=== PATIENT | female | born 1985 | race Caucasian/White ===

== ENCOUNTER 2017-06-10 00:23 | Emergency (ER) | payer OTHER ==
[~2017-06-10] VITALS: Ht 157.5 cm; Wt 54.4 kg
--- NOTE | 2017-06-10 00:26 | ED PSYCHIATRIC COMPLAINT ---
History of Present Illness General Chief Complaint: Psychiatric Related Complaint Stated Complaint: BIBA DEPRESSION Source: patient, EMS Exam Limitations: intoxication Vital Signs & Intake/Output Vital Signs & Intake/Output Vital Signs Date Time Temp Pulse Resp B/P B/P Pulse O2 O2 Flow FiO2 Mean Ox Delivery Rate 06/10 1048 98.9 75 18 115/68 97 Room Air 06/10 0855 98.1 70 18 110/60 96 Room Air 06/10 0714 99.1 56 16 86/52 96 Room Air 06/10 0026 96.5 86 22 120/60 96 Room Air Allergies Coded Allergies: Penicillins (Mild, RASH 06/10/17) amoxicillin (Mild, RASH 06/10/17) Triage Nurses Notes Reviewed? yes Onset: Afternoon Duration: day(s): (FEW) Timing: recent history Severity: moderate, severe Associated Symptoms: DEPRESSED, FEELING DOWN HPI: This is a 32-year-old female with reported history of bipolar disorder on Celexa and Klonopin who presents via EMS from home with chief complaint of feeling very down and depressed. She denies any suicidal ideation. She says that her boyfriend became concerned about her and called EMS. HEENT she admits to 2 glasses of wine prior to arrival. She denies any drug use. She states that she is not any bipolar medications that she can likely magnetic field. Positive family history. No SI or HI. Denies any hallucinations or delusions. She states she's been trying to obtain custody back of her son from her mother and is been going to provide Court which is made her very upset. She has not seen or spoken him in over one year. He used to be with his father and father 1 year ago. ([place] ARNOLD,Angella) Past History Medical History Any Pertinent Medical History? see below for history Psychiatric: anxiety, bipolar disease Surgical History Surgical History: non-contributory Psychosocial History ETOH Use: occasional use Illicit Drug Use: denies illicit drug use Family History Comment: MOTHER - DEPRESSION, ANXIETY Hx Contributory? Yes ([place] ARNOLD,Angella) Review of Systems Review of Systems Constitutional: Denies: chills, fever. EENTM: Reports: no symptoms. Respiratory: Denies: hemoptysis, short of breath. Cardiovascular: Denies: chest pain. GI: Denies: abdominal pain. Genitourinary: Reports: no symptoms. Musculoskeletal: Reports: no symptoms. Skin: Reports: no symptoms. Neurological/Psychological: Reports: anxiety, dementia, emotional problems. Hematologic/Endocrine: Reports: no symptoms. Immunologic/Allergic: Reports: no symptoms. All Other Systems: Reviewed and Negative (Angella Guthrie MD) Physical Exam Physical Exam General Appearance: well developed/nourished, alert, awake, anxious, mild distress Head: atraumatic Eyes: Bilateral: PERRL, EOMI. Ears, Nose, Throat: normal pharynx, normal ENT inspection, hearing grossly normal Neck: normal inspection, supple Respiratory: normal breath sounds Cardiovascular: regular rate/rhythm Gastrointestinal: soft, non-tender Extremities: normal range of motion Neurological/Psychiatric: no motor/sensory deficits, agitated, alert, calm Appearance/Memory/Insight: disheveled, impaired insight Behavoir/Eye Contact/Speech: uncooperative, normal speech, good eye contact Thoughts/Hallucinations: no apparent hallucination Skin: intact, normal color, warm/dry SAD PERSONS Done? patient not suicidal (Angella Guthrie MD) Progress Differential Diagnosis: BIPOLAR, DEPRESSION, ANXIETY, ALCOHOL INTOXICATION Plan of Care: Orders Procedure Date/time Status Regular Diet 06/10 B Active URINE DRUGS OF ABUSE 06/10 32 Complete URINE 06/10 32 Complete ETHANOL 06/10 32 Complete COMPREHENSIVE METABOLIC PANEL 06/10 32 Complete CBC WITHOUT DIFFERENTIAL 06/10 32 Complete ED CRISIS PSYCH CONSULT 06/10 32 Active Laboratory Tests 06/10/17 0046: Serum Alcohol 154.0 06/10/17 0046: Anion Gap 13, Estimated GFR > 60, BUN/Creatinine Ratio 8.0, Glucose 100 H, Calcium 9.2, Total Bilirubin 0.1 L, AST 18, ALT 26, Alkaline Phosphatase 79, Total Protein 6.7, Albumin 4.3, Globulin 2.4, Albumin/Globulin Ratio 1.8, CBC w Diff NO MAN DIFF REQ, RBC 4.02 L, MCV 94.2, MCH 32.1 H, MCHC 34.0, RDW 13.2, MPV 8.8, Gran % 49.4, Lymphocytes % 36.5, Monocytes % 9.0, Eosinophils % 3.3, Basophils % 1.8, Absolute Granulocytes 3.7, Absolute Lymphocytes 2.8, Absolute Monocytes 0.7 H, Absolute Eosinophils 0.2, Absolute Basophils 0.1, Urine Opiates Screen < 100.00, Methadone Screen 51, Barbiturate Screen < 60, Ur Phencyclidine Scrn < 6.00, Amphetamines Screen 242, U Benzodiazepines Scrn < 85, Urine Cocaine Screen < 50, Urine Cannabis Screen 5.20, Urine Test NEGATIVE Hand-Off Endorsed To: Varghese Edwards MD Endorsed Time: 0700 Pending: consult (CRISIS) (Angella Guthrie MD) Comments: Cleared by psychiatry for discharge. (Varghese Edwards MD) Departure Departure Condition: Stable Clinical Impression Primary Impression: Depression Secondary Impressions: Alcohol intoxication (Angella Guthrie MD) Departure Time of Disposition: 1100 Disposition: HOME OR SELF CARE Additional Instructions: Follow up with the recommendations of the flow worker Departure Forms: General Discharge Information (Varghese Edwards MD)
[2017-06-10 01:00] LABS: ABSOLUTE BASOPHIL COUNT 0.1 /CUMM (0.0-0.2); ABSOLUTE EOSINOPHIL COUNT 0.2 /CUMM (0.0-0.7); ABSOLUTE GRANULOCYTE CT 3.7 /CUMM (1.4-6.5); ABSOLUTE LYMPH COUNT 2.8 /CUMM (1.2-3.4); ABSOLUTE MONOCYTE COUNT 0.7 /CUMM (0.10-0.60); BASOPHIL % 1.8 % (0.0-2.0); EOSINOPHIL % 3.3 % (0-5); GRANULOCYTE % 49.4 % (42.2-75.2); HEMATOCRIT 37.8 % (37-47); MEAN CORPUSCULAR HGB 32.1 PG (27.0-31.0); MEAN CORPUSCULAR VOLUME 94.2 FL (81.0-99.0); MEAN PLATELET VOLUME 8.8 FL (7.4-10.4); PLATELET COUNT 321 /CUMM (130-400); RBC DISTRIBUTION WIDTH 13.2 % (11.5-14.5); RED BLOOD CELL CT 4.02 /CUMM (4.20-5.40); WHITE BLOOD CELL COUNT 7.6 /CUMM (4.8-10.8)
[2017-06-10 10:48] VITALS: BP 115/68
--- NOTE | 2017-06-10 11:24 | ED PSYCH CRISIS CONSULTATION ---
Crisis Consult Basic Assessment Date of Consult: 06/10/17 Responsible Person/Accompanied By: self Insurance Authorization: Insurance #1: Insurance name: SHOSHANA FINLEY Phone number: Policy number: [id number] Group number: Authorization number: ED Provider: Patient's ED Provider: Varghese Edwards MD Primary Care Physician: Patient's PCP: Patient Has No Primary Care Dr PCP's Phone Number: Current Psychiatrist: none Chief Complaint: Psychiatric Related Complaint Patient's Quote: "I had to much to drink." Present Illness: Pt is a 32yo female who was sent to the ED by her boyfriend Harvey Barajas . Pt is not on a PEER. Pt explains that her boyfriend sent her to the ED because she was feeling overwhelmed and has a panic attack. she further explains that he was at [facility] previously and found it helpful, so her sent her to [facility] for support. She denies and current or hx of SI/HI/SH and psychosis. she admits to drinking 3 glasses of wine yesterday (BAL 154 at 00:46). She reports that she is a "social drinker on weekends" and does not see her drinking as a problem. [facility] She does report that she was in previous treatment in [facility] 2 year ago. She denies that she is in any current treatment, but is currently taking celexa prescribed by her Primary Care Doctor Dr. Dunbar. She informs that he just raised the celexa from 10mg to 20 over this past week. She reports that she is going for an intake at [facility] in 2 weeks. "I was just lacking on sleep and had too much to drink. I feel much better now that I go some rest." She explains that she has been feeling overwhelmed as she and her boyfriend are looking for a new place to live. Also, she has been in a custody vo with he mother over her 11yo child. This has been overwhelming for her. 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 she is also currently going to nursing school. She reports that she ans her boyfriend live together and her is supportive. She declines any referrals and says she wishes to go home. She denies that ther e are any guns in the home. Crisis spoke with pt's boyfriend Harvey Barajas who reflects the same as what client explained. He expresses that he would like to come pick her up and bring her home. Case reviewed with Dr. Glover of Psychiatry and she approved discharge. Patient's Address: [address] [place] [address] Other Phone Number: Who Do You Live With? Significant Other Family/Informants Interviewed: boyfriend Allergies - Coded Allergies: Penicillins (Mild, RASH 06/10/17) amoxicillin (Mild, RASH 06/10/17) Laboratory Results: Laboratory Tests 06/10/17 0046: Serum Alcohol 154.0 06/10/17 0046: Anion Gap 13, Estimated GFR > 60, BUN/Creatinine Ratio 8.0, Glucose 100 H, Calcium 9.2, Total Bilirubin 0.1 L, AST 18, ALT 26, Alkaline Phosphatase 79, Total Protein 6.7, Albumin 4.3, Globulin 2.4, Albumin/Globulin Ratio 1.8, CBC w Diff NO MAN DIFF REQ, RBC 4.02 L, MCV 94.2, MCH 32.1 H, MCHC 34.0, RDW 13.2, MPV 8.8, Gran % 49.4, Lymphocytes % 36.5, Monocytes % 9.0, Eosinophils % 3.3, Basophils % 1.8, Absolute Granulocytes 3.7, Absolute Lymphocytes 2.8, Absolute Monocytes 0.7 H, Absolute Eosinophils 0.2, Absolute Basophils 0.1, Urine Opiates Screen < 100.00, Methadone Screen 51, Barbiturate Screen < 60, Ur Phencyclidine Scrn < 6.00, Amphetamines Screen 242, U Benzodiazepines Scrn < 85, Urine Cocaine Screen < 50, Urine Cannabis Screen 5.20, Urine Test NEGATIVE Past History Past Medical History Neurological: NONE EENT: NONE Cardiovascular: hypertension Respiratory: NONE Gastrointestinal: NONE Hepatic: NONE Renal: NONE Musculoskeletal: NONE Psychiatric: anxiety, bipolar disease Endocrine: NONE Past Surgical History Surgical History: non-contributory Psychosocial History Strengths/Capabilities: supportive boyfriend, in school, starting new job Physical Limitations (Interventions): none reported Psychiatric Treatment History Psych Treatment Psychiatric Treatment Yes Inpatient Treatment No Outpatient Treatment Yes Location of Treatment [facility] Reason for Treatment depression Dates of Treatment 2 years ago Response to Treatment unknown Diagnosis by History: depression Substance Use/Abuse History Drug Use/Abuse Substances Used/Abused Yes Substance Used/Abused Alcohol First Use unknown Last Used last night How much used/taken 3 glasses of wine How often on weekends For how long unknown Route of use po Substance Abuse Treatment Substance Abuse Treatment Past Substance Abuse TX No Inpatient Treatment No Outpatient Treatment No Current Mental Status Mental Status Orientation: Person, Place, Situation Affect: WNL Speech: WNL Neuro-vegetative: Sleep Disturbance Appearance Appearance- Dress/Hygiene: radha groomed, good eye contact Behaviors Thought Process: WNL Thought Content: WNL Memory: WNL Insight: WNL SI/HI Risk Assessment Past Suicidal Ideation/Attempts No Current Suicidal Ideation/Att No Past Homicidal Ideation/Att: No Current Homicidal Ideation/Attempts No Degree of Intent: None Risk Factors: family stressors Lethality Ratin (mild) PTSD Checklist PTSD Done? patient declined ED Management Sitter: Yes Restraints: No DSM5/PS Stressors/Medical Prob Diagnosis' (DSM 5, Stressors, Medical): F32.9 Unspecified Depression Current GAF: 45 Departure Disposition Psych Medical Clearance Date: 06/10/17 Medically Cleared at: 1030 Time Started: 1030 Time Ended: 1130 Psychiatrist Consulted: Dr. Glover Date Disposition Established: 06/10/17 Time Disposition Established: 1130 Plan for Disposition - Modality: IOP Facility: [facility] Follow-up Appt Date: 06/25/17 Rationale for Disposition: Pt denies SI/HI/SH and psychosis and is agreeable to follow-up tx Referrals Patient Has No Primary Care Dr (PCP/Family)
== END 2017-06-10 11:14 ==
LOC: ERH 00:23
PROVIDERS: Emergency Medicine
DX: F32.9 Major depressive disorder, single episode, unspecified (principal); F10.129 Alcohol abuse with intoxication, unspecified
CPT/HCPCS: 80307; 81025; G0463; G0480